=== PATIENT | male | born 1985 | race Caucasian/White ===

== ENCOUNTER 2016-11-29 10:38 | Emergency (ER) | payer OTHER ==
--- NOTE | 2016-11-29 12:00 | ED CLINICAL REPORT ---
Clinical Report - Physicians/Mid Levels [facility] [address] [place] [address] 11/29/2016 10:43 [id number] Time Seen: 11:18 Nov 29 2016. Arrived- By private vehicle. Historian- patient. CPT: ER phys charges level 3 plus (#709140). Abscess complicated I&D (#[id number]). HISTORY OF PRESENT ILLNESS Chief Complaint: LESION. 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 recently much bigger in the past 3 days. May have traumatized it.). It is described as painful. It has been located on the neck (posterior). A cause has been identified. Similar symptoms previously: None. Recent medical care: The patient was seen recently at another facility in a clinic. Seen for similar symptoms. Evaluation/treatment- referral to dermatology. REVIEW OF SYSTEMS No fever, chills, sore throat, cough or difficulty breathing. No hoarseness, lump in throat, abdominal pain or joint pain. All systems otherwise negative, except as recorded above. PAST HISTORY See nurses notes. SOCIAL HISTORY Never smoker. Occasional alcohol use. No drug use. ADDITIONAL NOTES The nursing notes have been reviewed. PHYSICAL EXAM Vital Signs: 11/29/2016 10:48 BP: 133/71. HR: 69. RR: 18. O2 saturation: 98%. Temp: 97.8 F. Appearance: Alert. No acute distress. Anxious. Eyes: Conjunctivae and eyelids normal. ENT: Pharynx normal. Neck: Neck supple. No lymphadenopathy or meningeal signs. CVS: Normal heart rate and rhythm. Heart sounds normal. No cardiac murmur. Respiratory: No respiratory distress. Abdomen: Nontender. Skin: Single medium abscess with fluctuance and pointing to the neck. Extremities: Extremities nontender. Neuro: Oriented X 3. No motor deficit. No sensory deficit. PROGRESS AND PROCEDURES Incision & Drainage of Abscess: The abscess is located in the neck (posterior: Sebaceous cyst excision with concurrent abscess.). The risks of the procedure, benefits and alternatives were explained. Consent was obtained. Anesthesia provided using 1% lidocaine with bicarb. Skin cleansed with Betadine. The abscess was incised with a #11 surgical blade. A moderate amount of pus was drained. Cavity was irrigated with saline. Sample obtained for cultures and gram stain. A dressing was applied. ( Sebaceous cyst contents and lining were removed. Wound closed with 2 stitches of 4.0 nylon. Dressing placed.). Course of Care: Pt suffered a vasovagal event during the procedure and this resolved with Zofran 4mg ODT and laying supine. Patient/family counseled. Disposition: Discharged. Condition: stable and improved. CLINICAL IMPRESSION Sebaceous cyst (with excision: Infected with concurrent abscess.). INSTRUCTIONS Protect wound and keep wound area clean. Change dressing twice daily. Keep wounds dry. You may wash wounds briefly, then dry. Apply neosporin twice daily. Sutures should be removed in seven days. Do not work for two days until better. Warnings: Further evaluation is necessary. GENERAL WARNINGS: Return or contact your physician immediately if your condition worsens or changes unexpectedly, if not improving as expected, or if other problems arise. Prescription Medications: Bactrim DS 800 mg / 160 mg: Take 1 tablet orally every 12 hours for 7 days. Dispense fourteen (14). No refills. Substitution is permissible. OTC Medications: Acetaminophen (available over the counter): take according to label instructions. Follow-up: Follow up with your doctor in one week. Call for an appointment. Understanding of the discharge instructions verbalized by patient and family. Discharge instructions reviewed with and understanding was verbalized by spouse. (Electronically signed by Isai Gonzalez MD 11/29/2016 20:05)
--- NOTE | 2016-11-29 12:00 | ED ORDER SUMMARY ---
..... Patient: NIKOS LEBRON OrderSheet [facility] VisitID: [id number] [address] [place] [address] 30y, M Registration Date/Time: 11/29/2016 ORDER SHEET Weight: 92.5 kg (stated) Allergies: No Known Drug Allergy GENERAL ORDERS: Culture, Wound Deep (Cyst) (posterior neck sebaceous cyst. Swab. ) Urgent (11:56 11/29/2016 Gordon BLACKBURN) (Ack 11:58 OSnell) (12:04 LWmillicent R.N.) Dress Wounds (12:00 11/29/2016 Gordon BLACKBURN) (12:04 Tip R.N.) MEDICATION ORDERS: IV FLUIDS: ORDER SHEET NOTES: [Electronically signed by Kelley Regalado R.N. (19:00 11/29/2016)] [Electronically signed by Isai Gonzalez MD (20:05 11/29/2016)] [Electronically locked/signed by Kelley Regalado R.N. (19:00 11/29/2016)]
--- NOTE | 2016-11-29 12:00 | ED CLINICAL REPORT ---
Clinical Report - Physicians/Mid Levels [facility] [address] [place] [address] 11/29/2016 10:43 [id number] Time Seen: 11:18 Nov 29 2016. Arrived- By private vehicle. Historian- patient. CPT: ER phys charges level 3 plus (#660281). Abscess complicated I&D (#[id number]). HISTORY OF PRESENT ILLNESS Chief Complaint: LESION. 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 recently much bigger in the past 3 days. May have traumatized it.). It is described as painful. It has been located on the neck (posterior). A cause has been identified. Similar symptoms previously: None. Recent medical care: The patient was seen recently at another facility in a clinic. Seen for similar symptoms. Evaluation/treatment- referral to dermatology. REVIEW OF SYSTEMS No fever, chills, sore throat, cough or difficulty breathing. No hoarseness, lump in throat, abdominal pain or joint pain. All systems otherwise negative, except as recorded above. PAST HISTORY See nurses notes. SOCIAL HISTORY Never smoker. Occasional alcohol use. No drug use. ADDITIONAL NOTES The nursing notes have been reviewed. PHYSICAL EXAM Vital Signs: 11/29/2016 10:48 BP: 133/71. HR: 69. RR: 18. O2 saturation: 98%. Temp: 97.8 F. Appearance: Alert. No acute distress. Anxious. Eyes: Conjunctivae and eyelids normal. ENT: Pharynx normal. Neck: Neck supple. No lymphadenopathy or meningeal signs. CVS: Normal heart rate and rhythm. Heart sounds normal. No cardiac murmur. Respiratory: No respiratory distress. Abdomen: Nontender. Skin: Single medium abscess with fluctuance and pointing to the neck. Extremities: Extremities nontender. Neuro: Oriented X 3. No motor deficit. No sensory deficit. PROGRESS AND PROCEDURES Incision & Drainage of Abscess: The abscess is located in the neck (posterior: Sebaceous cyst excision with concurrent abscess.). The risks of the procedure, benefits and alternatives were explained. Consent was obtained. Anesthesia provided using 1% lidocaine with bicarb. Skin cleansed with Betadine. The abscess was incised with a #11 surgical blade. A moderate amount of pus was drained. Cavity was irrigated with saline. Sample obtained for cultures and gram stain. A dressing was applied. ( Sebaceous cyst contents and lining were removed. Wound closed with 2 stitches of 4.0 nylon. Dressing placed.). Course of Care: Pt suffered a vasovagal event during the procedure and this resolved with Zofran 4mg ODT and laying supine. Patient/family counseled. Disposition: Discharged. Condition: stable and improved. CLINICAL IMPRESSION Sebaceous cyst (with excision: Infected with concurrent abscess.). INSTRUCTIONS Protect wound and keep wound area clean. Change dressing twice daily. Keep wounds dry. You may wash wounds briefly, then dry. Apply neosporin twice daily. Sutures should be removed in seven days. Do not work for two days until better. Warnings: Further evaluation is necessary. GENERAL WARNINGS: Return or contact your physician immediately if your condition worsens or changes unexpectedly, if not improving as expected, or if other problems arise. Prescription Medications: Bactrim DS 800 mg / 160 mg: Take 1 tablet orally every 12 hours for 7 days. Dispense fourteen (14). No refills. Substitution is permissible. OTC Medications: Acetaminophen (available over the counter): take according to label instructions. Follow-up: Follow up with your doctor in one week. Call for an appointment. Understanding of the discharge instructions verbalized by patient and family. Discharge instructions reviewed with and understanding was verbalized by spouse. (Electronically signed by Isai Gonzalez MD 11/29/2016 20:05)
--- NOTE | 2016-11-29 12:00 | ED NURSING NOTES ---
Clinical Report - Nurses [facility] [address] [place] [address] 11/29/2016 10:43 [id number] Triage time 10:48 Nov 29 2016. Acuity: LEVEL 3. Chief Complaint: SKIN LESION. KULDIP COMA SCORE: Kuldip Coma Scale: 15- eyes open spontaneously (4); best verbal response- oriented x 4 (5); best motor response- obeys commands (6). --10:57 Kelley Regalado R.N. 10:48 11/29/16. BP: 133/71. HR: 69. RR: 18. O2 saturation: 98%. Temp: 97.8 F. --10:57 Kelley Regalado R.N. 12:08 11/29/16. Pain level now 12/29. --12:08 Kelley Regalado R.N. Weight: 92.5 kg stated. Height/Length: 74 inches Per Patient. BMI: 26.2. --10:57 Kelley Rgealado R.N. Medications None. --10:52 Kelley Regalado R.N. Allergies No Known Drug Allergy. --10:52 Kelley Regalado R.N. History Arrived by private vehicle. Historian: patient. Reported as (back of the neck). Onset. (Had a su size lump on the back of neck and last week it grew to size of 50cent piece.). It is described as burning and painful. ( Was seen at urgent care and sent to specialist the specialist can't see patient until 4 weeks. Patient is complaining of headaches and feels like it's going onto his spine.). He has had fever. No muscle aches, headache, cough, difficulty breathing or itching. No weakness. Not itchy. 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 PAST MEDICAL HX: No history of asthma, diabetes mellitus, heart disease or lung disease. Immunizations: up-to-date. SOCIAL HX: Never smoker. Occasional alcohol use. No drug use. SELF HARM ASSESSMENT: A self harm assessment was performed. The patient answered "no" to the question "Have you recently felt down, depressed, or hopeless?" and "Do you have thoughts of harming or killing yourself?". FALL RISK ASSESSMENT: Fall risk assessment completed. No fall risk identified. NUTRITIONAL RISK ASSESSMENT: The nutritional risk assessment revealed no deficiencies. FUNCTIONAL ASSESSMENT: Functional assessment: no impairments noted. LEARNING NEEDS ASSESSMENT: The learning needs assessment revealed no barriers. ABUSE ASSESSMENT: Abuse assessment: (yes) The patient was asked "Do you feel safe in your home?". SKIN INTEGRITY ASSESSMENT: Skin integrity risk assessment completed. No skin integrity risk identified. --10:57 Kelley Regalado R.N. PROBLEMS: no known problems. ADDITIONAL SURGERIES: no known surgeries. Interventions ID band on patient. --10:57 Kelley Regalado R.N. PHYSICAL ASSESSMENT Ambulatory to room. GENERAL / NEURO / PSYCH: Alert. The patient does not appear to be in acute distress. Oriented X 4. HEENT: Pupils equal, round and reactive to light. Mucous membranes are pink. RESPIRATORY: Respirations not labored. Breath sounds within normal limits. CVS: Capillary refill less than 2 seconds. Pulses within normal limits. GI / : Abdomen nontender. SKIN: Skin is non-tender. Skin lesion present. Normal skin turgor. Swelling present. --10:59 Kelley Regalado R.N. NURSING PROGRESS NOTES Pulse oximeter and NIBP monitor placed on patient. Head of bed elevated. Reassurance given. Call light placed in reach. Side rails up x 1. Bed placed in lowest position. Brakes of bed on. --10:59 Kelley Regalado R.N. DISPOSITION / DISCHARGE Departure time: 12:05 Nov 29 2016. Condition at departure: improved. No learning barriers present. Discharge instructions provided and reviewed with the patient. Reviewed warnings. Reviewed medication(s). Treatments reviewed. Reviewed referrals. Work note given. Patient verbalized understanding. Written instructions provided in Irish. The patient was discharged home and accompanied by spouse. He left the Emergency Department ambulatory and via private vehicle. Spouse driving. --12:07 Kelley Regalado R.N. 12:05 11/29/16. BP: 92/59. HR: 74. RR: 18. O2 saturation: 100%. Temp: 98.6 F. Pain level now 08/31. --12:07 Kelley Regalado R.N. Locked/Released at 11/29/2016 19:00 by Kelley Regalado R.N.
--- NOTE | 2016-11-29 12:00 | ED NURSING NOTES ---
Clinical Report - Nurses [facility] [address] [place] [address] 11/29/2016 10:43 [id number] TRI[facility] Triage time 10:48 Nov 29 2016. Acuity: LEVEL 3. Chief Complaint: SKIN LESION. KULDIP COMA SCORE: Kuldip Coma Scale: 15- eyes open spontaneously (4); best verbal response- oriented x 4 (5); best motor response- obeys commands (6). --10:57 Kelley Regalado R.N. 10:48 11/29/16. BP: 133/71. HR: 69. RR: 18. O2 saturation: 98%. Temp: 97.8 F. --10:57 Kelley Regalado R.N. 12:08 11/29/16. Pain level now 12/29. --12:08 Kelley Regalado R.N. Weight: 92.5 kg stated. Height/Length: 74 inches Per Patient. BMI: 26.2. --10:57 Kelley Regalado R.N. Medications None. --10:52 Kelley Regalado R.N. Allergies No Known Drug Allergy. --10:52 Kelley Regalado R.N. History Arrived by private vehicle. Historian: patient. Reported as (back of the neck). Onset. (Had a su size lump on the back of neck and last week it grew to size of 50cent piece.). It is described as burning and painful. ( Was seen at urgent care and sent to specialist the specialist can't see patient until 4 weeks. Patient is complaining of headaches and feels like it's going onto his spine.). He has had fever. No muscle aches, headache, cough, difficulty breathing or itching. No weakness. Not itchy. 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 PAST MEDICAL HX: No history of asthma, diabetes mellitus, heart disease or lung disease. Immunizations: up-to-date. SOCIAL HX: Never smoker. Occasional alcohol use. No drug use. SELF HARM ASSESSMENT: A self harm assessment was performed. The patient answered "no" to the question "Have you recently felt down, depressed, or hopeless?" and "Do you have thoughts of harming or killing yourself?". FALL RISK ASSESSMENT: Fall risk assessment completed. No fall risk identified. NUTRITIONAL RISK ASSESSMENT: The nutritional risk assessment revealed no deficiencies. FUNCTIONAL ASSESSMENT: Functional assessment: no impairments noted. LEARNING NEEDS ASSESSMENT: The learning needs assessment revealed no barriers. ABUSE ASSESSMENT: Abuse assessment: (yes) The patient was asked "Do you feel safe in your home?". SKIN INTEGRITY ASSESSMENT: Skin integrity risk assessment completed. No skin integrity risk identified. --10:57 Kelley Regalado R.N. PROBLEMS: no known problems. ADDITIONAL SURGERIES: no known surgeries. Interventions ID band on patient. --10:57 Kelley Regalado R.N. PHYSICAL ASSESSMENT Ambulatory to room. GENERAL / NEURO / PSYCH: Alert. The patient does not appear to be in acute distress. Oriented X 4. HEENT: Pupils equal, round and reactive to light. Mucous membranes are pink. RESPIRATORY: Respirations not labored. Breath sounds within normal limits. CVS: Capillary refill less than 2 seconds. Pulses within normal limits. GI / : Abdomen nontender. SKIN: Skin is non-tender. Skin lesion present. Normal skin turgor. Swelling present. --10:59 Kelley Regalado R.N. NURSING PROGRESS NOTES Pulse oximeter and NIBP monitor placed on patient. Head of bed elevated. Reassurance given. Call light placed in reach. Side rails up x 1. Bed placed in lowest position. Brakes of bed on. --10:59 Kelley Regalado R.N. DISPOSITION / DISCHARGE Departure time: 12:05 Nov 29 2016. Condition at departure: improved. No learning barriers present. Discharge instructions provided and reviewed with the patient. Reviewed warnings. Reviewed medication(s). Treatments reviewed. Reviewed referrals. Work note given. Patient verbalized understanding. Written instructions provided in Spanish. The patient was discharged home and accompanied by spouse. He left the Emergency Department ambulatory and via private vehicle. Spouse driving. --12:07 Kelley Reglaado R.N. 12:05 11/29/16. BP: 92/59. HR: 74. RR: 18. O2 saturation: 100%. Temp: 98.6 F. Pain level now 08/31. --12:07 Kelley Regalado R.N. Locked/Released at 11/29/2016 19:00 by Kelley Regalado R.N.
--- NOTE | 2016-11-29 12:00 | ED ORDER SUMMARY ---
..... Patient: NIKOS LEBRON OrderSheet [facility] VisitID: [id number] [address] [place] [address] 30y, M Registration Date/Time: 11/29/2016 ORDER SHEET Weight: 92.5 kg (stated) Allergies: No Known Drug Allergy GENERAL ORDERS: Culture, Wound Deep (Cyst) (posterior neck sebaceous cyst. Swab. ) Urgent (11:56 11/29/2016 Gordon BLACKBURN) (Ack 11:58 OSnell) (12:04 LWmillicent R.N.) Dress Wounds (12:00 11/29/2016 Gordon BLACKBURN) (12:04 Tip R.N.) MEDICATION ORDERS: IV FLUIDS: ORDER SHEET NOTES: [Electronically signed by Kelley Regalado R.N. (19:00 11/29/2016)] [Electronically signed by Isai Gonzalez MD (20:05 11/29/2016)] [Electronically locked/signed by Kelley Regalado R.N. (19:00 11/29/2016)]
--- NOTE | 2016-11-29 20:05 | ED MED RECONCILIATION SUMMARY ---
Patient: NIKOS LEBRON Medication Reconciliation Report [facility] VisitID: [id number] [address] [place] [address] 30y, M Registration Date/Time: 11/29/2016 Weight: 92.5 kg Height/Length: 74 in. BMI: 26.2 ALLERGIES: No Known Drug Allergy The patient's Home Medications are listed below: NONE. The source(s) of the original Home Medication information: Not obtained. The following Medications were given to the patient in the Emergency Department: None. The following Medications were prescribed to the patient: Acetaminophen (available over the counter): take according to label instructions. -- Isai Gonzalez MD Bactrim DS 800 mg / 160 mg: Take 1 tablet orally every 12 hours for 7 days. Dispense fourteen (14). No refills. Substitution is permissible. -- Isai Gonzalez MD
--- NOTE | 2016-11-29 20:05 | ED MED RECONCILIATION SUMMARY ---
Patient: NIKOS LEBRON Medication Reconciliation Report [facility] VisitID: [id number] [address] [place] [address] 30y, M Registration Date/Time: 11/29/2016 Weight: 92.5 kg Height/Length: 74 in. BMI: 26.2 ALLERGIES: No Known Drug Allergy The patient's Home Medications are listed below: NONE. The source(s) of the original Home Medication information: Not obtained. The following Medications were given to the patient in the Emergency Department: None. The following Medications were prescribed to the patient: Acetaminophen (available over the counter): take according to label instructions. -- Isai Gonzalez MD Bactrim DS 800 mg / 160 mg: Take 1 tablet orally every 12 hours for 7 days. Dispense fourteen (14). No refills. Substitution is permissible. -- Isai Gonzalez MD
--- NOTE | 2016-11-29 20:05 | ED MAR SUMMARY ---
..... Medication Administration Record [facility] [address] [place], [place] [id number] Patient: NIKOS LEBRON Visit ID: [id number] 30y, M Weight: 92.5 kg Height/Length: 74 in BMI: 26.2 ALLERGIES: No Known Drug Allergy
--- NOTE | 2016-11-29 20:05 | ED DISCHARGE INSTRUCTIONS ---
Patient: NIKOS LEBRON General Instructions [facility] VisitID: [id number] [place] [address] 30y, M Registration Date/Time: 11/29/2016 Sebaceous cyst (with excision: Infected with concurrent abscess.). INSTRUCTIONS Protect wound and keep wound area clean. Change dressing twice daily. Keep wounds dry. You may wash wounds briefly, then dry. Apply neosporin twice daily. Sutures should be removed in seven days. Do not work for two days until better. Warnings: Further evaluation is necessary. GENERAL WARNINGS: Return or contact your physician immediately if your condition worsens or changes unexpectedly, if not improving as expected, or if other problems arise. Prescription Medications: Bactrim DS 800 mg / 160 mg: Take 1 tablet orally every 12 hours for 7 days. Dispense fourteen (14). No refills. Substitution is permissible. OTC Medications: Acetaminophen (available over the counter): take according to label instructions. Follow-up: Follow up with your doctor in one week. Call for an appointment. Understanding of the discharge instructions verbalized by patient and family. Discharge instructions reviewed with and understanding was verbalized by spouse. ADDITIONAL INFORMATION Sebaceous Cyst, Infected (Antibiotic Treatment) A sebaceous cyst occurs when the opening of an oil gland in the skin becomes blocked. The gland swells with skin oil and skin cells. As it gets bigger, it appears as a small painless lump under the skin. Sometimes the cyst can become infected. When the infection is limited, it can be treated with antibiotics alone. If the infection does not clear up with antibiotic treatment, the cyst will need to be drained by making a small incision using local anesthesia. Home care The following guidelines will help you care for your wound at home: Take all of the antibiotic as directed until they are it is gone. Soak the involved area in hot water or apply hot packs (small towel soaked in hot water) for 20 minutes at a time three to four times a day. Apply antibiotic cream or ointment three times a day. You may use acetaminophen or ibuprofen to control pain, unless another medicine was prescribed.If you have chronic liver or kidney disease or ever had a stomach ulcer or GI bleeding, talk with your doctor before using these medicines. Preventing future infection Once this infection has healed, observe the following to reduce the risk of future infections: Keep the area of the cyst clean by bathing or showering daily. Avoid tight fitting clothing in the area of the cyst. Follow-up care Follow up with your doctor as advised by our staff. If a gauze packing was inserted in your wound, it should be removed in 12 days. Check your wound every day for the signs listed below. When to seek medical care Get prompt medical attention if any of the following occur: Pus coming from the cyst Increasing redness around the wound Increasing local pain or swelling Fever of 100.4F (38C) or higher, or as directed by your healthcare provider Bandage Change If the bandage becomes wet or dirty, replace it. Otherwise, leave it in place for the first 24 hours. Then once a day: After removing the bandage, wash the area with soap and water. Use a wet cotton swab to loosen and remove any blood or crust that forms on the wound. After cleaning, apply a thin layer of antibiotic ointment or cream. Reapply the bandage. You may shower as usual after the first 24 hours. If the bandage is on an arm or leg, cover it with a plastic bag rubber banded at both ends before showering. No tub baths or swimming until the bandage is removed and the wound healed (at least 7 days). You have been given the following additional information: Sebaceous Cyst, Infected (Abx Tx) Dressing Change Do not work for two days until better. (Electronically signed by Isai Gonzalez MD 11/29/2016 20:05)
--- NOTE | 2016-11-29 20:05 | ED MAR SUMMARY ---
..... Medication Administration Record [facility] [address] [id number] Patient: NIKOS LEBRON Visit ID: [id number] 30y, M Weight: 92.5 kg Height/Length: 74 in BMI: 26.2 ALLERGIES: No Known Drug Allergy
== END 2016-11-29 12:01 | disposition home or self-care (01) ==
LOC: ED SRH 10:38
DX: L72.3 Sebaceous cyst (principal)
CPT/HCPCS: 90131; 90309; 90470